=== PATIENT | male | born 2000 | race Caucasian/White ===

== ENCOUNTER 2020-03-23 11:58 | Emergency (ER) | payer OTHER ==
[~2020-03-23] VITALS: Ht 180.3 cm; Wt 84.1 kg
[2020-03-23 12:03] VITALS: BP 137/79; PULSE 99; TEMP 99.1
== END 2020-03-23 13:10 | disposition home or self-care (01) ==
LOC: COL.ER 11:58
DX: S61.214A Laceration without foreign body of right ring finger without damage to nail, initial encounter (principal); Z88.1 Allergy status to other antibiotic agents; W23.1XXA Caught, crushed, jammed, or pinched between stationary objects, initial encounter

== ENCOUNTER 2020-09-22 12:17 | Emergency (ER) | payer OTHER | END 2020-09-22 12:37 | disposition left against medical advice (07) | LOC: COL.ER 12:17 | DX: Z00.00 Encounter for general adult medical examination without abnormal findings (principal) ==